=== PATIENT | female | born 1980 | race African-American/Black ===

== ENCOUNTER 2022-02-06 17:27 | Emergency (ER) | payer SELFPAY ==
[~2022-02-06] VITALS: Ht 167.6 cm; Wt 79.0 kg
[2022-02-06] MEDS ORDERED: LIDO700A30 TP (21:29)
[2022-02-06] MEDS ORDERED: IBUP-2029 MT (21:29)
[2022-02-06] MEDS ORDERED: IBUPROFEN 600MG TABLET PO NR (21:30)
[2022-02-06] MEDS ORDERED: LIDOCAINE 5% PATCH TOP SCH (21:30)
[2022-02-06] MEDS ORDERED: CYCLOBENZAPRINE 10MG TABLET PO SCH (21:30)
[2022-02-06 22:33] VITALS: BP 108/77
== END 2022-02-06 22:40 | disposition home or self-care (01) ==
LOC: ER 17:27
DX: M25.511 Pain in right shoulder (principal); V43.52XA Car driver injured in collision with other type car in traffic accident, initial encounter; Y93.89 Activity, other specified; Y92.488 Other paved roadways as the place of occurrence of the external cause
CPT/HCPCS: 99283